=== PATIENT | male | born 1990 ===

== ENCOUNTER 2017-12-14 13:34 | Outpatient (CLI) | payer BC ==
--- NOTE | 2017-12-14 16:35 | XRay Report ---
XRAY RIGHT KNEE 3 THREE VIEWS: 12/14/17 13:34:00 CLINICAL: Right knee pain. FINDINGS: Normal bones, joints and soft tissues. No fracture or dislocation. No joint effusion. IMPRESSION: Normal.
== END 2017-12-14 13:35 | disposition home or self-care (01) ==
LOC: SPVIMAG 13:34
PROVIDERS: ATTEND Orthopaedic Surgery
DX: M25.561 Pain in right knee (principal)